=== PATIENT | male | born 1995 | race Hispanic/Latino ===

== ENCOUNTER 2020-01-24 12:36 | Emergency (ER) | payer SELFPAY ==
[2020-01-24] MEDS ORDERED: ONDANSETRON ODT 4 MG TAB ONE (13:02)
[2020-01-24] MEDS ORDERED: TRAMADOL HCL 50 MG TABLET ONE (13:02)
[2020-01-24 13:16] LABS: BASOPHILS % (AUTO) 0.2 % (0.0-5.0); EOSINOPHILS % (AUTO) 0.2 % (0.0-8.0); HEMATOCRIT 42.9 % (42-54); LYMPHOCYTES % (AUTO) 22.5 % (21.0-51.0); MEAN CORPUSCULAR HEMOGLOBIN 26.2 pg (27.0-33.0); MEAN CORPUSCULAR HGB CONC 33.1 g/dL (32.0-36.0); MEAN CORPUSCULAR VOLUME 79.3 fL (79-99); MONOCYTES % (AUTO) 7.4 % (3.0-13.0); NEUTROPHILS % (AUTO) 69.1 % (40.0-77.0); PLATELET COUNT (AUTO) 370 K/uL (130-400); RED BLOOD CELL COUNT(AUTO) 5.41 MIL/uL (4.50-6.20); RED CELL DISTRIBUTION WIDTH 14.3 % (11.0-15.5); WHITE BLOOD COUNT (AUTO) 12.6 K/uL (4.8-10.8)
[2020-01-24 13:47] LABS: CREATININE 0.8 mg/dL (0.5-1.5); POTASSIUM 3.2 mmol/L (3.5-5.1)
[2020-01-24 13:51] LABS: BILIRUBIN,TOTAL 0.8 mg/dL (0.2-1.0); TOTAL PROTEIN, SERUM 7.7 g/dL (6.0-8.3)
[2020-01-24 14:27] LABS: ERYTHROCYTE SEDIMENTATION RATE 6 MM/HR (0-15)
[2020-01-24] MEDS ORDERED: POTASSIUM BICARB/CIT AC 25 MEQ TABLET.EFF ONE (14:40)
[2020-01-24] MEDS ORDERED: KETOROLAC TROMETHAMINE 60 MG/2 ML VIAL ONE (14:41)
== END 2020-01-24 15:05 | disposition home or self-care (01) ==
LOC: EDH 12:36
DX: M62.838 Other muscle spasm (principal); M25.551 Pain in right hip; Z88.6 Allergy status to analgesic agent; Z72.0 Tobacco use
CPT/HCPCS: 36415; 73502; 80053; 85025; 85651; 96372; 99284; J1885

== ENCOUNTER 2020-01-25 19:29 | Inpatient (IN) | payer SELFPAY ==
[~2020-01-25] VITALS: Ht 175.3 cm; Wt 90.2 kg
[2020-01-25] MEDS ORDERED: DEXAMETHASONE SOD PHOSPHATE 10MG/ML 1ML VIAL ONE (20:20)
[2020-01-25] MEDS ORDERED: KETOROLAC TROMETHAMINE 60 MG/2 ML VIAL ONE (20:20)
[2020-01-25 21:30] LABS: BASOPHILS % (AUTO) 0.2 % (0.0-5.0); EOSINOPHILS % (AUTO) 0.2 % (0.0-8.0); HEMATOCRIT 39.9 % (42-54); MEAN CORPUSCULAR HEMOGLOBIN 26.1 pg (27.0-33.0); MEAN CORPUSCULAR HGB CONC 33.1 g/dL (32.0-36.0); MEAN CORPUSCULAR VOLUME 78.9 fL (79-99); NEUTROPHILS % (AUTO) 73.1 % (40.0-77.0); PLATELET COUNT (AUTO) 398 K/uL (130-400); RED BLOOD CELL COUNT(AUTO) 5.06 MIL/uL (4.50-6.20); RED CELL DISTRIBUTION WIDTH 14.6 % (11.0-15.5); WHITE BLOOD COUNT (AUTO) 12.3 K/uL (4.8-10.8)
[2020-01-25 21:45] LABS: CREATININE 0.7 mg/dL (0.5-1.5); POTASSIUM 3.5 mmol/L (3.5-5.1)
[2020-01-25 21:49] LABS: ALBUMIN 4.2 g/dL (3.5-5.0); BILIRUBIN,TOTAL 0.7 mg/dL (0.2-1.0); CRP QUANTITATIVE 100.9 mg/L (0.00-9.0); TOTAL PROTEIN, SERUM 7.8 g/dL (6.0-8.3)
[2020-01-25] MEDS ORDERED: VANCOMYCIN 1GM+NS 250ML 250 ML IV SCH (22:30)
[2020-01-25] MEDS ORDERED: HYDROMORPHONE 1 MG/1 ML AMP IV PRN (22:30)
[2020-01-25] MEDS ORDERED: HYDROCODONE/ACETAMINOPHEN 5/325 MG TAB PO PRN (22:30)
[2020-01-25] MEDS ORDERED: SODIUM CHLORIDE 0.9% 1000ML 1,000 ML IV SCH (22:30)
[2020-01-25] MEDS ORDERED: ONDANSETRON HCL 4 MG/2 ML VIAL IV PRN (22:30)
[2020-01-25] MEDS ORDERED: ACETAMINOPHEN 325 MG TAB PO PRN ×2 (22:30)
[2020-01-25 22:32] LABS: ERYTHROCYTE SEDIMENTATION RATE 15 MM/HR (0-15)
[2020-01-25] MEDS ORDERED: VANCOMYCIN 1GM+NS 250ML 250 ML IV ONE (23:00)
[2020-01-25] MEDS ORDERED: ZOSYN 3.375GM+NS 50ML 50 ML IV ONE (23:00)
[2020-01-25] MEDS ORDERED: SODIUM CHLORIDE 0.9% 1000ML 2,000 ML IV ONE (23:01)
[2020-01-25] MEDS ORDERED: HYDROCODONE/IBUPROFEN 7.5/200 MG TAB ONE (23:34)
[2020-01-25 23:58] LABS: AMPHET/METH SCREEN,URINE NEGATIVE (NEGATIVE); BARBITURATE SCREEN, URINE NEGATIVE (NEGATIVE); BENZODIAZEPINES SCREEN,URINE NEGATIVE (NEGATIVE); CANNABINOID SCREEN,URINE POSITIVE (NEGATIVE); COCAINE SCREEN,URINE NEGATIVE (NEGATIVE); OPIATE SCREEN,URINE NEGATIVE (NEGATIVE); PHENCYCLIDINE SCREEN,URINE NEGATIVE (NEGATIVE)
[2020-01-26] MEDS ORDERED: GADODIAMIDE 10 MMOL/20 ML VIAL IV ONE (08:14)
[2020-01-26] MEDS: SODIUM CHLORIDE 0.9% 1000ML 1,000 ML IV SCH ×2 (08:26→18:02)
[2020-01-26 10:33] LABS: BASOPHILS % (AUTO) 0.1 % (0.0-5.0); HEMATOCRIT 37.7 % (42-54); LYMPHOCYTES % (AUTO) 12.9 % (21.0-51.0); MEAN CORPUSCULAR HEMOGLOBIN 26.4 pg (27.0-33.0); MEAN CORPUSCULAR HGB CONC 33.2 g/dL (32.0-36.0); MEAN CORPUSCULAR VOLUME 79.7 fL (79-99); MONOCYTES % (AUTO) 3.8 % (3.0-13.0); NEUTROPHILS % (AUTO) 82.8 % (40.0-77.0); PLATELET COUNT (AUTO) 376 K/uL (130-400); RED BLOOD CELL COUNT(AUTO) 4.73 MIL/uL (4.50-6.20); RED CELL DISTRIBUTION WIDTH 14.6 % (11.0-15.5); WHITE BLOOD COUNT (AUTO) 9.1 K/uL (4.8-10.8)
[2020-01-26 10:54] LABS: ALBUMIN 3.5 g/dL (3.5-5.0); BILIRUBIN,TOTAL 0.6 mg/dL (0.2-1.0); CREATININE 0.6 mg/dL (0.5-1.5); POTASSIUM 3.5 mmol/L (3.5-5.1); TOTAL PROTEIN, SERUM 7.2 g/dL (6.0-8.3)
[2020-01-26] MEDS: ZOSYN 3.375GM+NS 50ML 50 ML IV SCH ×2 (13:00→20:46)
[2020-01-26] MEDS ORDERED: ZOSYN 3.375GM+NS 50ML 50 ML IV ONE (13:29)
[2020-01-26] MEDS ORDERED: NAPR-1023 PO (13:34)
[2020-01-26] MEDS ORDERED: BACL10TA PO (13:34)
[2020-01-26 14:15] VITALS: BP 101/65
[2020-01-26] MEDS ORDERED: TRAMADOL HCL 50 MG TABLET PO PRN (15:30)
[2020-01-26 16:16] VITALS: BP 117/71
--- NOTE | 2020-01-26 17:14 | NUR ---
DAVID NOTE/IA UNABLE TO MEET WITH PATIENT IN ROOM. NEXT OF KIN CALLED, HARLEY GERMAN. PER MOTHER, PATIENT LIVES ALONE, IS INDEPENDENT WITH ADLS, NO USE OF DME OR PROVIDER SERVICES, EMPLOYED, AND FEELS SAFE TO RETURN HOME ONCE DISCHARGED. Addendum: 01/26/20 at 1715 by ARNOLD FOX RN CM Amended: Links added.
[2020-01-26 19:15] VITALS: BP 119/64
[2020-01-26 21:04] LABS: PROTHROMBIN TIME 10.8 SEC (9.6-11.6)
[2020-01-27] VITALS (7 sets, daily range): BP systolic 107–131; BP diastolic 53–69
[2020-01-27] MEDS: SODIUM CHLORIDE 0.9% 1000ML 1,000 ML IV SCH ×2 (02:20→19:57)
[2020-01-27] MEDS: ZOSYN 3.375GM+NS 50ML 50 ML IV SCH ×3 (05:21→19:57)
[2020-01-27] MEDS: HYDROCODONE/IBUPROFEN 7.5/200 MG TAB PO PRN (10:26)
--- NOTE | 2020-01-27 12:45 | NUR ---
U/S GD RT GLUTEAL MASS BX PROCEDURE PERFORMED BY DR Cortney WALL. PUNCTURE SITE RT HIP AND PATIENT TOLERATED PROCEDURE WELL. SPECIMEN X4 COLLECTED AND SENT TO LAB. END OF PROCEDURE AT 1225. BIOPSY NEEDLE REMOVED AND DRESSING APPLIED. NO BLEEDING NOTED. REPORT GIVEN TO Ac ANTHONY RN AND PATIENT TRANSPORTED TO [facility] VIA BED AT 1245. AAO X3 WITH NO C/O PAIN.
--- NOTE | 2020-01-27 20:05 | NUR ---
PAIN Pt medicated with Tramadol for c/o of pain to rt hip.
--- NOTE | 2020-01-27 21:05 | NUR ---
MED EFFECT Pt verbalized relief of pain.
[2020-01-28] MEDS: ZOSYN 3.375GM+NS 50ML 50 ML IV SCH ×3 (03:52→21:47)
[2020-01-28] MEDS: SODIUM CHLORIDE 0.9% 1000ML 1,000 ML IV SCH ×2 (03:59→21:46)
[2020-01-28 04:00] VITALS: BP 105/60
[2020-01-28 05:46] LABS: BASOPHILS % (AUTO) 0.4 % (0.0-5.0); EOSINOPHILS % (AUTO) 0.5 % (0.0-8.0); HEMATOCRIT 38.4 % (42-54); LYMPHOCYTES % (AUTO) 34.2 % (21.0-51.0); MEAN CORPUSCULAR HEMOGLOBIN 25.9 pg (27.0-33.0); MEAN CORPUSCULAR VOLUME 80.8 fL (79-99); MONOCYTES % (AUTO) 7.3 % (3.0-13.0); NEUTROPHILS % (AUTO) 56.9 % (40.0-77.0); PLATELET COUNT (AUTO) 431 K/uL (130-400); RED BLOOD CELL COUNT(AUTO) 4.75 MIL/uL (4.50-6.20); RED CELL DISTRIBUTION WIDTH 14.7 % (11.0-15.5); WHITE BLOOD COUNT (AUTO) 8.5 K/uL (4.8-10.8)
[2020-01-28 06:04] LABS: CARBON DIOXIDE 27 mmol/L (21-32); CHLORIDE 105 mmol/L (101-111); CREATININE 0.8 mg/dL (0.5-1.5); GLOMERULAR FILTR. RATE CALC 125 mL/min (>60); GLUCOSE,RANDOM 85 mg/dL (70-105); POTASSIUM 3.4 mmol/L (3.5-5.1); SODIUM SERUM 139 mmol/L (136-145); UREA NITROGEN, BLOOD 12 mg/dL (7-18)
[2020-01-28 07:48] VITALS: BP 118/69
[2020-01-28 11:44] VITALS: BP 102/60
[2020-01-28] MEDS ORDERED: IOHEXOL-350 50ML VIAL IV ONE (15:33)
--- NOTE | 2020-01-28 15:59 | NUR ---
CM NOTE/GOOD RX PATIENT IS UNINSURED, SELF PAY PACKETS GIVEN TO PATIENT ALONG WITH GOOD RX CHARD. PATIENT EDUCATED ON MATERIAL THAT IS ON PACKET, VERBALIZED UNDERSTANDING.
[2020-01-28 16:18] VITALS: BP 120/71
[2020-01-28] MEDS: HYDROCODONE/IBUPROFEN 7.5/200 MG TAB PO PRN (16:45)
[2020-01-28 19:49] VITALS: BP 129/71
[2020-01-29 00:12] VITALS: BP 118/72
[2020-01-29] MEDS: HYDROCODONE/IBUPROFEN 7.5/200 MG TAB PO PRN (03:37)
[2020-01-29 04:28] VITALS: BP 110/58
[2020-01-29] MEDS: ZOSYN 3.375GM+NS 50ML 50 ML IV SCH (05:00)
[2020-01-29 06:43] LABS: CREATININE 0.8 mg/dL (0.5-1.5); MAGNESIUM 2.4 mg/dL (1.80-2.40); POTASSIUM 3.6 mmol/L (3.5-5.1)
[2020-01-29 07:30] VITALS: BP 106/62
[2020-01-29] MEDS: SODIUM CHLORIDE 0.9% 1000ML 1,000 ML IV SCH (12:13)
== END 2020-01-29 14:50 | disposition home or self-care (01) | DRG 607 ==
LOC: EDH 19:29 → EDHIP 19:30 → 4AH 01-26 14:16
PROVIDERS: ADMIT Internal Medicine; ATTEND Internal Medicine
DX: R22.41 Localized swelling, mass and lump, right lower limb (principal); D72.829 Elevated white blood cell count, unspecified; F12.90 Cannabis use, unspecified, uncomplicated; F17.210 Nicotine dependence, cigarettes, uncomplicated; D64.9 Anemia, unspecified; Z88.8 Allergy status to other drugs, medicaments and biological substances; Z82.49 Family history of ischemic heart disease and other diseases of the circulatory system
CPT/HCPCS: 36415; 71270; 73700; 73723; 76882; 76942; 80048; 80053; 80305; 83735; 84145; 85025; 85610; 85651; 85730; 86140; 87040; A9579; G0378; J1100; J1885; J2543; J3370; J7030; Q9967